=== PATIENT | female | born 1940 | race Caucasian/White ===

== ENCOUNTER → 2018-08-23 | Outpatient (CLI) | payer MEDICARE, BC ==
[~2018-08-23] MED LIST: ADVAIR 250/28 DISKU1 IH; ALBUTEROL1.25 MG/3 IH; ALDACTONE 25MG25 M1 PO; ALLEGRA30 MG PO; AMITRIPTYLINE H10 M1 PO; AMITRIPTYLINE H25 M1 PO; AMITRIPTYLINE25 MG PO; ASPI325T6 PO; ASPIRIN 32325 MG/TAB PO; ASPIRIN E.C. 8181 MG PO; BENEMID500 MG PO; BLOOD PRESSURE MED PO; BROVANA15 MCG/2 M IH; CARDI-OMEGA1000 MG PO; CLARITIN 1010 MG/TAB PO; DYAZIDE 25 MG-31 CAP PO; EPA/GLA1 SGL PO; FISH OIL1 IU PO; GABAPENTIN TAB600 MG PO; LEVOTHYROXIN0.125 MG PO; LEVOXYL0.025 MG; LIPITOR 10MG10 MG PO; LIPITOR20 MG PO; LYRICA 150MG C150 MG PO; LYRICA 25MG CAP25 MG PO; LYRICA 75MG CAP75 MG PO; MAXZIDE-25MG TA1 TAB PO; NEURONTIN600 MG/TAB PO; NORCO 325 MG-101 TAB PO; PAROXETINE40 MG PO; PAXIL 20MG20 MG PO; PAXIL40 MG PO; POTASSIUM99 MG PO; PRILOSEC 20MG20 MG PO; PROTONIX 40MG T40 MG PO; PULMICORT0.5 MG/2 M IH; RT ADVAIR 228 DISKUS IH; SINGULAIR 110 MG/TAB PO; STOOL SOFTENER100 M2 PO; SYNTHROID0.125 MG/T PO; TENORMIN100 MG PO; ULTRAM 50MG TAB50 MG PO; ZANTAC 150MG T150 MG PO; ZANTAC150 MG PO; ZOFRAN ODT4 MG PO; ZYRTEC 10MG10 MG PO
== END ==
LOC: ZCOL.LAB 13:52
DX: J31.0 Chronic rhinitis (principal)

== ENCOUNTER → 2019-09-01 | Outpatient (CLI) | payer MEDICARE, BC | LOC: ZLAB.ENT 16:40 → ZCOL.LAB 16:40 | DX: J32.0 Chronic maxillary sinusitis (principal) ==

== ENCOUNTER 2021-11-08 12:02 | Inpatient (IN) | payer MEDICARE, BC, MEDICAID ==
[~2021-11-08] VITALS: Ht 167.6 cm; Wt 84.1 kg
[2021-11-08 12:51] LABS: BASO % 0.3 % (0.0-2.0); EOS # 0.2 K/mm3 (0.0-0.7); EOS % 1.8 % (0.0-4.0); GRAN # 7.3 K/mm3 (1.4-6.5); GRAN % 82.5 % (42.2-75.2); HEMOGLOBIN 11.8 g/dl (12.5-16.0); LYMPH # 0.8 K/mm3 (1.2-3.4); LYMPH % 9.1 % (20.0-51.0); MEAN CELL VOLUME 91 fl (80.0-100.0); MEAN CORPUSCULAR HEMOGLOBIN 31 pg (27-31); MEAN CORPUSCULAR HGB CONC 34 g/dl (33.0-37.0); MONO # 0.6 K/mm3 (0.1-0.6); MONO % 6.2 % (1.7-9.3); PLATELET COUNT 211 K/mm3 (130-400); RED BLOOD COUNT 3.86 M/mm3 (4.10-5.30); REDCELL DISTRIBUTION WIDTH-CV 13.6 % (11.5-14.5)
[2021-11-08 12:52] LABS: HEMATOCRIT 35.2 % (37.0-47.0)
[2021-11-08 13:03] LABS: ALBUMIN 3.4 gm/dL (3.4-4.8); BILIRUBIN,TOTAL 1.5 mg/dL (0.2-1.2); CALCIUM 8.8 mg/dL (8.4-10.2); CREATININE, serum 0.82 mg/dL (0.57-1.11); POTASSIUM 3.7 mmol/L (3.5-4.5); TOTAL PROTEIN 6.8 gm/dL (6.2-8.1)
[2021-11-08 13:15] LABS: ARTERIAL BLD GAS O2 SATURATION 95.3 % (92-100); ARTERIAL BLD GAS TCO2 CT 35.9; ARTERIAL BLOOD GAS BASE EXCESS 8.5 (-2-2); ARTERIAL BLOOD GAS HCO3 34.3 meq/L (22-26); ARTERIAL BLOOD GAS PCO2 52.8 mmHg (35-45); ARTERIAL BLOOD GAS PO2 75.8 mmHg (80-100); ARTERIAL BLOOD GAS pH 7.43 (7.35-7.45)
[2021-11-08] MEDS ORDERED: PEPCID 20MG TAB20 MG PO (14:14)
[2021-11-08] MEDS ORDERED: ZYLOPRIM 100MG100 MG PO (14:15)
[2021-11-08] MEDS ORDERED: ZYRTEC 10MG10 MG PO (14:15)
[2021-11-08] MEDS ORDERED: AMITRIPTYLINE H50 M1 PO (14:16)
[2021-11-08] MEDS ORDERED: ASPIRIN 32325 MG/TAB PO (14:17)
[2021-11-08] MEDS ORDERED: TENORMIN 5050 MG/TAB PO (14:17)
[2021-11-08] MEDS ORDERED: LIPITOR20 MG PO (14:18)
[2021-11-08] MEDS ORDERED: DULCOLAX STOOL100 MG PO (14:19)
[2021-11-08] MEDS ORDERED: ZITHROMAX 250M250 MG PO (14:19)
[2021-11-08] MEDS ORDERED: CYMBALTA 30MG30 MG PO (14:20)
[2021-11-08] MEDS ORDERED: LEXAPRO20 MG PO (14:20)
[2021-11-08] MEDS ORDERED: FIBER PO (14:22)
[2021-11-08] MEDS ORDERED: FLONASEALLERGY NS (14:23)
[2021-11-08] MEDS ORDERED: FLAXSEED OIL1000 MG PO (14:23)
[2021-11-08] MEDS ORDERED: ATROVENT I0.2 MG/1 M IH (14:24)
[2021-11-08] MEDS ORDERED: KLOR-CON 1010 MEQ PO (14:24)
[2021-11-08] MEDS ORDERED: SINGULAIR 110 MG/TAB PO (14:25)
[2021-11-08] MEDS ORDERED: SYNTHROID 0.10.15 MG PO (14:25)
[2021-11-08] MEDS ORDERED: NYSTATIN CREAM15 GM TP (14:26)
[2021-11-08] MEDS ORDERED: ZANAFLEX CAPSULE2 MG PO (14:27)
[2021-11-08] MEDS ORDERED: LYRICA 75MG CAP75 MG PO (14:27)
[2021-11-08] MEDS ORDERED: SENNA-LAX8.6 MG PO (14:27)
[2021-11-08] MEDS ORDERED: DYAZIDE 25 MG-31 CAP PO (14:28)
[2021-11-08] MEDS ORDERED: ULTRAM 50MG TAB50 MG PO (14:28)
[2021-11-08] MEDS ORDERED: VENTOLIN0.09 MG IH (14:29)
[2021-11-08 15:41] VITALS: BP 158/94; PULSE 71; TEMP 97.7
[2021-11-08] MEDS ORDERED: MASON NATURAL2000 IU PO (16:41)
--- NOTE | 2021-11-08 17:00 | NUR ---
Patient admitted to room 311 from ED for Hypoxia. Report recieved from VIET Duarte. Patient currently requiring 3L of O2 via nasal cannula. Medications, allergies, and pharmacy reviewed. Admission paperwork completed. VSS. Patient A&O. Patient given PRN medication for neck pain. Patient denies any further pain, discomfort, SOA, or further needs at this time. Call light in reach. Fall percautions in place.
[2021-11-08 20:41] VITALS: BP 156/65; PULSE 61; TEMP 98.2
--- NOTE | 2021-11-08 20:56 | NUR ---
PT ON 3L NC PER HOME O2 SETTING. TX GIVEN VIA MOUTHPIECE, TOLERATED WELL.
--- NOTE | 2021-11-08 23:06 | NUR ---
Pt alert and oriented x 4 this evening. Good output, has been up multiple times already to void. Calm and cooperative. Pt reported a headahce, I administered prn tylenol. Evening medications have been administered and education was provided. Shift assessment performed. Pt reports she has had a few falls at home, but it has been at least 1 month since the last fall. States she does not like using a walker at home, but uses a wheelchair. Noted 2+ edema in the BLE. Pt has scattered bruising along the arms, as well as some skin tears. The pt's skin in thin and tears very easily. Pt is steady when moving from the bed to the [facility]. Vital signs are stable. BP runs higher, this evening it was 155/65. NSR with the HR in the 70's. Pt is on 3L nasal cannula and satting at 96%. Noted some fine crackles upon auscultation and pt appears a little SOB on exertion. Pt reports no questions at this time. Will continue to monitor, no concerns at this time.
[2021-11-08 23:56] VITALS: BP 109/61; PULSE 68; TEMP 98
[2021-11-09 05:06] VITALS: BP 143/54; PULSE 62; TEMP 97.9
--- NOTE | 2021-11-09 05:50 | NUR ---
No adverse events overnight. Pt reported this morning pain in her head and back, as well as difficulty sleeping and requested a tramadol. Administered tramadol, and will reassess in 30 minutes. Put had multiple large voids overnight. Vital signs remain stable, BP decreased overnight, but is increasing back to her elevated baseline now. Pt remains on 3L NC, satting in high 90's. Standby assist throughout the night to BS. Pt reports no questions. Will continue to monitor, no new concerns at this time.
[2021-11-09 06:58] LABS: GRAN # 4.5 K/mm3 (1.4-6.5); GRAN % 84.7 % (42.2-75.2); LYMPH # 0.6 K/mm3 (1.2-3.4); LYMPH % 10.5 % (20.0-51.0); MEAN CELL VOLUME 91 fl (80.0-100.0); MEAN CORPUSCULAR HEMOGLOBIN 31 pg (27-31); MEAN CORPUSCULAR HGB CONC 34 g/dl (33.0-37.0); MEAN PLATELET VOLUME 10.6 fl (7.4-10.4); MONO # 0.2 K/mm3 (0.1-0.6); MONO % 4.4 % (1.7-9.3); PLATELET COUNT 199 K/mm3 (130-400); RED BLOOD COUNT 3.57 M/mm3 (4.10-5.30); REDCELL DISTRIBUTION WIDTH-CV 13.5 % (11.5-14.5)
[2021-11-09 07:07] LABS: HEMATOCRIT 32.5 % (37.0-47.0)
[2021-11-09 07:16] LABS: CALCIUM 8.7 mg/dL (8.4-10.2); CREATININE, serum 0.82 mg/dL (0.57-1.11); MAGNESIUM 1.5 mg/dL (1.6-2.6); PHOSPHOROUS 3.6 mg/dL (2.3-4.7); POTASSIUM 3.3 mmol/L (3.5-4.5)
[2021-11-09 08:00] VITALS: BP 149/63; PULSE 68; TEMP 97.7
--- NOTE | 2021-11-09 08:00 | NUR ---
Patient sitting up in bed, A&Ox4. VSS 3L NC O2, no reported SOB at rest. Reports pain in neck and headache, pain medication given by prior nurse. Patient repositioned self in bed. Call light within reach. Bed alarm on
[2021-11-09 12:30] VITALS: BP 145/51; PULSE 69; TEMP 97.9
--- NOTE | 2021-11-09 13:09 | NUR ---
broom worker met with patient to discuss discharge plan. Patient currently lives at home with her Nicola ([phone]) in [place]. She reports to being fully independent with her ADL's. She reports that anytime she needs to get around she uses a wheelchair. Patient is on 2.5L of NC oxygen that is managed through [facility]. PCP is and she utilizes [facility] pharmacy for medications with no cost difficulty. Patient states that she does have a DPOA-HC established listing her daughter Jaycee ([phone]). Patient is planning on returning home once medically ready. She is pending PT/OT evals. Discharge plan: Home; pending PT/OT
--- NOTE | 2021-11-09 13:47 | NUR ---
Log Yard Manager offered prayer and support with patient.
[2021-11-09 16:16] VITALS: BP 134/54; PULSE 75; TEMP 98.2
--- NOTE | 2021-11-09 18:19 | NUR ---
Patient sitting up in bed, A&Ox4. VSS 3L NC O2. IV CDI. Denies pain and discomfort. Call light within reach. Bed alarm on
[2021-11-09 20:00] VITALS: BP 142/47; PULSE 71; TEMP 97.7
[2021-11-10] VITALS: BP 143/53; PULSE 72; TEMP 97.4
[2021-11-10 04:49] VITALS: BP 163/68; PULSE 68; TEMP 98.2
--- NOTE | 2021-11-10 06:42 | NUR ---
ASSUMED CARE OF PATIENT AFTER RECEIVING BEDSIDE REPORT. PATIENT DENIES QUESTIONS, CONCERNS, AND PAIN. NO ACUTE EVENTS OVERNIGHT. BEDSIDE REPORT TO BE GIVEN TO ONCOMING SHIFT.
[2021-11-10 07:08] LABS: BASO % 0.1 % (0.0-2.0); GRAN # 9.8 K/mm3 (1.4-6.5); GRAN % 89.7 % (42.2-75.2); HEMOGLOBIN 11.2 g/dl (12.5-16.0); LYMPH # 0.6 K/mm3 (1.2-3.4); LYMPH % 5.5 % (20.0-51.0); MEAN CELL VOLUME 92 fl (80.0-100.0); MEAN CORPUSCULAR HEMOGLOBIN 30 pg (27-31); MEAN CORPUSCULAR HGB CONC 33 g/dl (33.0-37.0); MEAN PLATELET VOLUME 10.6 fl (7.4-10.4); MONO # 0.5 K/mm3 (0.1-0.6); MONO % 4.4 % (1.7-9.3); PLATELET COUNT 217 K/mm3 (130-400); RED BLOOD COUNT 3.71 M/mm3 (4.10-5.30); REDCELL DISTRIBUTION WIDTH-CV 13.9 % (11.5-14.5)
[2021-11-10 07:09] LABS: HEMATOCRIT 34.1 % (37.0-47.0)
[2021-11-10 07:23] LABS: ALBUMIN 2.9 gm/dL (3.4-4.8); CREATININE, serum 0.95 mg/dL (0.57-1.11); PHOSPHOROUS 4.2 mg/dL (2.3-4.7); POTASSIUM 3.7 mmol/L (3.5-4.5)
[2021-11-10 07:36] VITALS: BP 156/66; PULSE 79; TEMP 98.2
--- NOTE | 2021-11-10 08:00 | NUR ---
Patient sitting up in bed, A&Ox4. VSS 2.5L NC O2, no reported SOB. IV CDI. Reports a headache and neck pain. Pain medication given as requested. Call light within reach. Bed alarm on
[2021-11-10 08:13] VITALS: BP 142/63; PULSE 77; TEMP 98
[2021-11-10] MEDS ORDERED: PREDNISONE20 MG PO (09:13)
[2021-11-10 11:44] VITALS: BP 148/79; PULSE 67; TEMP 97.8
--- NOTE | 2021-11-10 14:57 | NUR ---
Discharge paperwork reviewed with the patient. Patient verbalized an understanding to follow doctors orders. IV removed, tip intact, gauze and coban covering. Patients friend bringing portable O2 to the patient. Call light within reach
--- NOTE | 2021-11-10 15:39 | NUR ---
Patient taken by wheelchair to ED entrance. No further needs expressed.
--- NOTE | 2021-11-10 17:26 | NUR ---
Baldemar LLANOS informs patient is ready for discharge with home health. Cargo Worker met with patient, who is alert and oriented and aware of plan. She would like to be referred to [facility] and [facility] HH. She states she, her family, and her friends in social service manager have been attempting to get her into HH services but she has been on a waitlist for 3 months. This Cargo Worker faxed referrals to [facility] and [facility]. Both agencies are contacted by telephone; awaiting call backs. This personal service workers received telephone contact from Jazlyn Moreno, on-call RN who informs patient is accepted [facility] on-call [facility]; uncertain of service acceptance at this time. Cargo Worker notifies patient, daughter Kayleen ([phone]) and Lauryn LLANOS. Daughter is willing to moss picker patient for discharge. This Cargo Worker informed by RN that patient prefers friend, a nurse, to pick her up instead. Daughter is okay with this. Clinical update/discharge documentation faxed to [facility]. *Discharge plan: to home with family and [facility]*
== END 2021-11-10 15:40 | disposition home health service (06) | DRG 189 ==
LOC: COL.ER 12:02 → MEDICAL 13:54 → COL.ER 13:54 → MEDICAL 11-10 15:40
PROVIDERS: Family Medicine; ADMIT Internal Medicine
DX: J96.21 Acute and chronic respiratory failure with hypoxia (principal); E44.0 Moderate protein-calorie malnutrition; J84.10 Pulmonary fibrosis, unspecified; I25.10 Atherosclerotic heart disease of native coronary artery without angina pectoris; F32.A Depression, unspecified; G62.9 Polyneuropathy, unspecified; E78.5 Hyperlipidemia, unspecified; I10 Essential (primary) hypertension; K21.9 Gastro-esophageal reflux disease without esophagitis; E03.9 Hypothyroidism, unspecified; M10.9 Gout, unspecified; M48.00 Spinal stenosis, site unspecified; J30.2 Other seasonal allergic rhinitis; Z20.822 Contact with and (suspected) exposure to COVID-19; Z99.81 Dependence on supplemental oxygen; Z88.6 Allergy status to analgesic agent; Z88.0 Allergy status to penicillin; Z88.2 Allergy status to sulfonamides; Z95.5 Presence of coronary angioplasty implant and graft; Z79.82 Long term (current) use of aspirin; Z68.29 Body mass index [BMI] 29.0-29.9, adult
CPT/HCPCS: 99223-AI; 99233-AI; 99239; J0696; J1650; J1940; J2920; J2930; J3475

== ENCOUNTER → 2023-04-14 | Outpatient (REF) | payer MEDICARE, BC, MEDICAID ==
[~2023-04-14] MED LIST changes: +00186-0370-20 IH; +AMITRIPTYLINE H50 M1 PO; +ATROVENT I0.2 MG/1 M IH; +CYMBALTA 60MG60 MG PO; +DEBROX OT; +DOXYCYCLINE HY100 MG PO; +DULCOLAX STOOL100 MG PO; +EUTHYROX125 MCG PO; +FIBER PO; +FLAXSEED OIL1000 MG PO; +FLONASEALLERGY NS; +GENTLE LAXATIVE10 MG RC; +GOOD NEIGH1200 MG/15 PO; +IBU400 MG PO; +IMODIUM 2MG CAPS2 MG PO; +K-DUR20 MEQ PO; +LASIX 40MG TABL40 MG PO; +LEXAPRO20 MG PO; +LYSINE 500500 MG/TAB PO; +MASON NATURAL2000 IU PO; +MEDROL 4MG DOSPA4 MG PO; +METAMUCIL PACK3.4 GM PO; +MYLANTA 150 ML150 M1 PO; +NYSTATIN100000 U/1 TOP; +OMNICEF 300MG300 MG PO; +PEPCID 20MG TAB20 MG PO; +PREDNISONE20 MG PO; +PROAIR HFA0.09 MG/AC IH; +SENNA-S 50 MG-81 TAB PO; +SYNTHROID 0.10.15 MG PO; +TENORMIN 5050 MG/TAB PO; +TYLENOL 325MG325 MG PO; +ZANAFLEX CAPSULE2 MG PO; +ZITHROMAX 250M250 MG PO; +ZYLOPRIM 100MG100 MG PO
[2023-04-14 15:40] LABS: CREATININE, serum 1.32 mg/dL (0.57-1.11); POTASSIUM 3.6 mmol/L (3.5-4.5)
== END ==
LOC: ZCOL.LAB 15:27
PROVIDERS: Physician Assistant
DX: I50.31 Acute diastolic (congestive) heart failure (principal); N18.32 Chronic kidney disease, stage 3b

== ENCOUNTER → 2023-05-05 | Outpatient (CLI) | payer MEDICARE, BC, MEDICAID ==
[2023-05-05 14:05] LABS: BASO # 0.1 K/mm3 (0.0-0.2); BASO % 0.5 % (0.0-2.0); EOS # 0.3 K/mm3 (0.0-0.7); EOS % 3.3 % (0.0-4.0); GRAN # 7.5 K/mm3 (1.4-6.5); GRAN % 72.3 % (42.2-75.2); HEMATOCRIT 39.7 % (37.0-47.0); HEMOGLOBIN 12.2 g/dl (12.5-16.0); LYMPH # 1.5 K/mm3 (1.2-3.4); LYMPH % 14.1 % (20.0-51.0); MEAN CELL VOLUME 98 fl (80.0-100.0); MEAN CORPUSCULAR HEMOGLOBIN 30 pg (27-31); MEAN CORPUSCULAR HGB CONC 31 g/dl (33.0-37.0); MEAN PLATELET VOLUME 10.6 fl (7.4-10.4); MONO % 9.5 % (1.7-9.3); PLATELET COUNT 254 K/mm3 (130-400); RED BLOOD COUNT 4.07 M/mm3 (4.10-5.30); REDCELL DISTRIBUTION WIDTH-CV 14.1 % (11.5-14.5)
[2023-05-05 14:17] LABS: ALBUMIN 3.5 gm/dL (3.4-4.8); BILIRUBIN,TOTAL 0.9 mg/dL (0.2-1.2); CALCIUM 8.9 mg/dL (8.4-10.2); CHOLESTEROL RISK RATIO 2.5; CREATININE, serum 1.43 mg/dL (0.57-1.11); POTASSIUM 3.6 mmol/L (3.5-4.5); TOTAL PROTEIN 7.2 gm/dL (6.2-8.1)
[2023-05-05 14:36] LABS: THYROID STIMULATING HORMONE 0.337 uIU/mL (0.350-4.940)
== END ==
LOC: ZCOL.LAB 13:57
PROVIDERS: Internal Medicine
DX: J96.21 Acute and chronic respiratory failure with hypoxia (principal); I25.10 Atherosclerotic heart disease of native coronary artery without angina pectoris; E78.5 Hyperlipidemia, unspecified; E03.9 Hypothyroidism, unspecified

== ENCOUNTER → 2023-09-07 | Outpatient (REF) | payer MEDICARE, BC, MEDICAID | LOC: ZCOL.LAB 15:18 | DX: I50.32 Chronic diastolic (congestive) heart failure (principal) ==

== ENCOUNTER → 2023-09-23 | Outpatient (CLI) | payer MEDICARE, BC, MEDICAID ==
[2023-09-23 21:51] LABS: COLLECTION METHOD CLEAN CATCH
[2023-09-23 22:00] LABS: PH 6.5 (5.0-8.5); URINE APPEARANCE CLEAR (CLEAR/HAZY); URINE BLOOD 2+ (NEGATIVE); URINE COLOR YELLOW (YELLOW); URINE GLUCOSE NEGATIVE (NEGATIVE); URINE KETONE NEGATIVE (NEGATIVE); URINE NITRATE NEGATIVE (NEGATIVE); URINE PROTEIN(semi-quant) NEGATIVE (NEGATIVE); URINE UROBILINOGEN 0.2 E.U/dL (0.2-1.0)
== END ==
LOC: ZCOL.LAB 21:08
PROVIDERS: Internal Medicine
DX: N39.0 Urinary tract infection, site not specified (principal)

== ENCOUNTER → 2023-12-08 | Outpatient (REF) | payer MEDICARE, BC, MEDICAID ==
[2023-12-08 18:45] LABS: COLLECTION METHOD CLEAN CATCH
[2023-12-08 18:58] LABS: URINE APPEARANCE CLEAR (CLEAR/HAZY); URINE BLOOD NEGATIVE (NEGATIVE); URINE COLOR YELLOW (YELLOW); URINE GLUCOSE NEGATIVE (NEGATIVE); URINE KETONE NEGATIVE (NEGATIVE); URINE NITRATE NEGATIVE (NEGATIVE); URINE PROTEIN(semi-quant) NEGATIVE (NEGATIVE); URINE UROBILINOGEN 0.2 E.U/dL (0.2-1.0)
== END ==
LOC: ZCOL.LAB 17:45
PROVIDERS: Physician Assistant
DX: R39.9 Unspecified symptoms and signs involving the genitourinary system (principal)